=== PATIENT | female | born 1980 | race Caucasian/White ===

== ENCOUNTER 2017-10-27 11:19 | Emergency (ER) | payer OTHER ==
[~2017-10-27] VITALS: Ht 157.5 cm; Wt 59.0 kg
[~2017-10-27 11:19] MED LIST: NOHOMEMEDICATIONS
[2017-10-27] MEDS ORDERED: TOPAMAX50 MG PO (11:25)
[2017-10-27] MEDS ORDERED: CYMBALTA20 MG PO (11:25)
[2017-10-27] MEDS ORDERED: BENZTROPINE MES1 MG PO (11:25)
[2017-10-27] MEDS ORDERED: CLONAZEPAM 1 MG1 M1 PO (11:25)
[2017-10-27 12:05] LABS: ABSOLUTE EOSINOPHILS 0.2 thou/uL (0.0-0.7); ABSOLUTE LYMPHOCYTES 2.3 thou/uL (0.8-5.3); ABSOLUTE MONOCYTES 0.7 thou/uL (0.0-1.2); ABSOLUTE NEUTROPHILS 6.3 thou/uL (1.6-8.1); BASOPHILS 0.4 %; EOSINOPHILS 1.8 %; HEMATOCRIT 41.2 % (37.0-47.0); HEMOGLOBIN 13.9 gm/dL (12.0-15.0); LYMPHOCYTES 24.2 %; MCH 31.7 pg (26.0-34.0); MCHC 33.9 g/dL (28.0-37.0); MCV 93.6 fL (80.0-100.0); MPV 7.5 fl. (7.2-11.1); NUCLEATED RBCS 0 /100WBC; PLATELET COUNT* 298 thou/uL (150-400); POLYS 66.6 %; RDW-CV 12.7 % (10.5-14.5); WBC 9.4 thou/uL (4.0-11.0)
[2017-10-27 12:16] LABS: ANION GAP 8 mmol/L (7-16); BUN 15 mg/dL (7-18); CALCIUM 8.8 mg/dL (8.5-10.1); CHLORIDE 107 mmol/L (98-107); CO2 24 mmol/L (21-32); CREATININE 0.8 mg/dL (0.6-1.3); GLUCOSE 103 mg/dL (70-99); POTASSIUM 3.6 mmol/L (3.5-5.1); SODIUM 139 mmol/L (136-145)
[2017-10-27 12:25] LABS: ALBUMIN 3.9 g/dL (3.4-5.0); ALKALINE PHOSPHATASE 59 U/L (46-116); LIPASE 79 U/L (73-393); SGOT 19 U/L (15-37); SGPT 24 U/L (30-65); TOTAL BILIRUBIN 0.6 mg/dL (<0.1-1.0); TOTAL PROTEIN 7.1 g/dL (6.4-8.2); TROPONIN-I LEVEL <0.06 ng/mL (<0.06)
[2017-10-27 12:27] LABS: URINE BILIRUBIN NEGATIVE (Negative); URINE BLOOD NEGATIVE (Negative); URINE CLARITY CLEAR; URINE COLOR YELLOW; URINE GLUCOSE-RANDOM NEGATIVE (Negative); URINE KETONES NEGATIVE (Negative); URINE LEUKOCYTES-REFLEX NEGATIVE (Negative); URINE NITRITE-REFLEX NEGATIVE (Negative); URINE PROTEIN NEGATIVE (Negative); URINE SPECIFIC GRAVITY <= 1.005 (1.005-1.030); URINE UROBILINOGEN 0.2 E.U./dl (0.2-1.0)
[2017-10-27 12:35] LABS: AMP/METHAMP Negative (Negative); BARBITURATES Negative (Negative); BENZODIAZEPINES POSITIVE (Negative); COCAINE Negative (Negative); METHADONE Negative (Negative); OPIATES Negative (Negative); PCP Negative (Negative); THC Negative (Negative)
[2017-10-27] MEDS ORDERED: VISTARIL 25 MG25 M1 PO (12:51)
[2017-10-27] MEDS ORDERED: TORADOL 10 MG T10 MG PO (12:51)
[2017-10-27] MEDS ORDERED: PROAIR HFA8.5 GM INH (12:53)
[2017-10-27 13:22] VITALS: BP 112/76
--- NOTE | 2017-10-28 16:20 | EKG ---
[place] [address] ELECTROCARDIOGRAM REPORT Name: ASAF ACEVEDO Room: [facility]#: [id number] Admission: 10/27/17 Attend Phys: Discharge: 10/27/17 Date of : 84 Report #: [id number] THIS REPORT FOR: //name// [facility] ED Test Date: 2017-10-27 Test Time: 11:23:54 Pat Name: ASAF ACEVEDO Department: Room: Gender: F Area Captain: ADRIANO : 1980 Requested By: Munira Davenport Order Number: [id number] MD: Juve Tran Measurements Intervals [place] Rate: 130 P: 76 VT: 118 QRS: 81 QRSD: 79 T: 36 QT: 299 QTc: 440 Interpretive Statements Sinus tachycardia No previous ECG available for comparison Electronically Signed On 10-28-2017 16:20:06 [employer] by Juve Tran [email or web address] <ELECTRONICALLY SIGNED> By: Juve Tran MD, [facility] 10/28/17 1620 [id number] Juve Tran MD, FACC /EPI
== END 2017-10-27 13:23 | disposition home or self-care (01) ==
LOC: M.ERS 11:19
PROVIDERS: Physician Assistant
DX: R07.9 Chest pain, unspecified (principal); F17.210 Nicotine dependence, cigarettes, uncomplicated; Z90.49 Acquired absence of other specified parts of digestive tract; Z98.890 Other specified postprocedural states

== ENCOUNTER 2018-01-05 23:33 | Emergency (ER) | payer OTHER ==
[~2018-01-05] VITALS: Ht 157.5 cm; Wt 61.2 kg
[~2018-01-05 23:33] MED LIST changes: +BENZTROPINE MES1 MG PO; +CLONAZEPAM 1 MG1 M1 PO; +CYMBALTA20 MG PO; +PROAIR HFA8.5 GM INH; +TOPAMAX50 MG PO; +TORADOL 10 MG T10 MG PO; +VISTARIL 25 MG25 M1 PO
[2018-01-05] MEDS ORDERED: LOXAPINE10 MG PO (23:50)
[2018-01-06] MEDS ORDERED: NAPROSYN500 MG PO (00:38)
[2018-01-06] MEDS ORDERED: ZANAFLEX4 MG PO (00:38)
[2018-01-06 00:48] VITALS: BP 98/67
== END 2018-01-06 00:50 | disposition home or self-care (01) ==
LOC: M.ERS 23:33
DX: S16.1XXA Strain of muscle, fascia and tendon at neck level, initial encounter (principal); S29.012A Strain of muscle and tendon of back wall of thorax, initial encounter; W01.0XXA Fall on same level from slipping, tripping and stumbling without subsequent striking against object, initial encounter; Y93.89 Activity, other specified; Y92.090 Kitchen in other non-institutional residence as the place of occurrence of the external cause; Y99.8 Other external cause status

== ENCOUNTER 2018-04-13 21:39 | Emergency (ER) | payer OTHER ==
[~2018-04-13] VITALS: Ht 157.5 cm; Wt 58.5 kg
[~2018-04-13 21:39] MED LIST changes: +LOXAPINE10 MG PO; +NAPROSYN500 MG PO; +ZANAFLEX4 MG PO
[2018-04-13 21:56] LABS: URINE BILIRUBIN NEGATIVE (Negative); URINE BLOOD TRACE (Negative); URINE CLARITY CLEAR; URINE COLOR YELLOW; URINE GLUCOSE-RANDOM NEGATIVE (Negative); URINE KETONES NEGATIVE (Negative); URINE LEUKOCYTES-REFLEX 2+ (Negative); URINE NITRITE-REFLEX NEGATIVE (Negative); URINE PROTEIN NEGATIVE (Negative)
[2018-04-13 22:04] LABS: BACTERIA-REFLEX >30 Many /HPF (None Seen); MUCUS 4-6 Moderate strn/LPF (None Seen); SQUAMOUS 0-3 Few /LPF (0-3); URINE WBC-REFLEX >25 Many /HPF (0-5); WBC CLUMPS Many (None Seen)
[2018-04-13 22:05] LABS: CASTS None Seen /LPF (None Seen); CRYSTALS None Seen /LPF (None Seen)
[2018-04-13 22:26] LABS: HEMATOCRIT 38.1 % (37.0-47.0); HEMOGLOBIN 12.7 gm/dL (12.0-15.0); MCH 31.6 pg (26.0-34.0); MCHC 33.3 g/dL (28.0-37.0); MCV 94.7 fL (80.0-100.0); MPV 7.3 fl. (7.2-11.1); NUCLEATED RBCS 0 /100WBC; PLATELET COUNT* 264 thou/uL (150-400); RBC 4.03 mil/uL (4.20-5.00); RDW-CV 12.4 % (10.5-14.5); WBC 17.4 thou/uL (4.0-11.0)
[2018-04-13 22:32] LABS: CALCIUM 8.4 mg/dL (8.5-10.1); CREATININE 0.7 mg/dL (0.6-1.3); POTASSIUM 3.5 mmol/L (3.5-5.1)
[2018-04-13 22:36] LABS: ALBUMIN 3.3 g/dL (3.4-5.0); TOTAL BILIRUBIN 0.5 mg/dL (<0.1-1.0); TOTAL PROTEIN 6.7 g/dL (6.4-8.2)
[2018-04-13] MEDS ORDERED: FLAGYL500 MG PO (22:41)
[2018-04-13] MEDS ORDERED: CITRATE OF MAG296 ML PO (22:41)
[2018-04-13] MEDS ORDERED: MACROBID 100 M100 M1 PO (22:41)
[2018-04-13 23:00] VITALS: BP 95/60
[2018-04-14 00:29] LABS: ABSOLUTE LYMPHOCYTES 2.1 thou/uL (0.8-5.3); ABSOLUTE MONOCYTES 0.5 thou/uL (0.0-1.2); ABSOLUTE NEUTROPHILS 14.8 thou/uL (1.6-8.1); PLATELET ESTIMATE ADEQUATE
[2018-04-14 00:30] LABS: TOXIC GRANULATION Occasional
== END 2018-04-13 23:47 | disposition home or self-care (01) ==
LOC: M.ERS 21:39
PROVIDERS: Nurse Practitioner Family
DX: N39.0 Urinary tract infection, site not specified (principal); K59.00 Constipation, unspecified; N76.0 Acute vaginitis; B96.89 Other specified bacterial agents as the cause of diseases classified elsewhere; Z90.49 Acquired absence of other specified parts of digestive tract